=== PATIENT | male | born 1980 | race Caucasian/White ===

== ENCOUNTER 2020-03-31 12:35 | Outpatient (CLI) | payer OTHER | END 2020-03-31 20:27 | disposition home or self-care (01) | LOC: SRD 12:35 | PROVIDERS: ATTEND Urology | DX: N43.3 Hydrocele, unspecified (principal); N50.811 Right testicular pain | CPT/HCPCS: 76870-TC ==

== ENCOUNTER 2020-06-30 09:39 | Outpatient (CLI) | payer OTHER | END 2020-06-30 20:24 | disposition home or self-care (01) | LOC: SMI 09:39 | PROVIDERS: ATTEND Internal Medicine | DX: M48.061 Spinal stenosis, lumbar region without neurogenic claudication (principal); S83.207A Unspecified tear of unspecified meniscus, current injury, left knee, initial encounter; M25.462 Effusion, left knee; M54.30 Sciatica, unspecified side; X58.XXXA Exposure to other specified factors, initial encounter; Y93.89 Activity, other specified; Y92.89 Other specified places as the place of occurrence of the external cause; Y99.8 Other external cause status | CPT/HCPCS: 72148; 73721 ==

== ENCOUNTER 2020-07-06 15:41 | Outpatient (CLI) | payer OTHER | END 2020-07-06 20:38 | disposition home or self-care (01) | LOC: SRD 15:41 | PROVIDERS: ATTEND Internal Medicine | DX: M16.0 Bilateral primary osteoarthritis of hip (principal); R60.9 Edema, unspecified | CPT/HCPCS: 73502; 73564 ==

== ENCOUNTER → 2020-09-30 | Outpatient (CLI) | payer OTHER ==
[2020-09-30 09:30] LABS: BASOPHILS # (AUTO) 0.1 K/uL (0.0-0.2); BASOPHILS % (AUTO) 0.7 % (0.0-2.0); EOSINOPHILS # (AUTO) 0.5 K/uL (0.0-0.4); HEMATOCRIT 43.9 % (36-54); HEMOGLOBIN 14.5 g/dL (14.0-18.0); LYMPHOCYTES # (AUTO) 2.4 K/uL (1.0-5.5); LYMPHOCYTES % (AUTO) 33.1 % (20.5-51.5); MEAN CORPUSCULAR HEMOGLOBIN 31 pg (27-31); MEAN CORPUSCULAR HGB CONC 33 % (32-36); MEAN CORPUSCULAR VOLUME 94 fL (79.0-98.0); MONOCYTES # (AUTO) 0.4 K/uL (0.0-1.0); MONOCYTES % (AUTO) 6.1 % (1.7-9.3); NEUTROPHILS # (AUTO) 3.9 K/uL (1.8-7.7); NEUTROPHILS % (AUTO) 53.1 % (40.0-70.0); PLATELET COUNT (AUTO) 231 K/uL (130-430); RED BLOOD CELL COUNT(AUTO) 4.64 MIL/uL (4.2-6.2); RED CELL DISTRIBUTION WIDTH 13.2 % (9.0-15.0); WHITE BLOOD COUNT (AUTO) 7.4 K/uL (4.8-10.8)
[2020-09-30 10:57] LABS: POTASSIUM 3.8 mmol/L (3.5-5.1)
[2020-09-30 10:58] LABS: ALBUMIN 3.8 g/dL (3.4-4.8); CALCIUM 8.6 mg/dL (8.4-11.0); CREATININE 1.35 mg/dL (0.55-1.30); TOTAL BILIRUBIN 0.6 mg/dL (0.0-1.0); URIC ACID 4.8 mg/dL (2.4-7.0)
[2020-09-30 12:20] LABS: THYROID STIMULATING HORMONE 1.53 uIu/mL (0.34-4.82)
[2020-10-01 06:06] LABS: PROSTATE SPECIFIC AG 0.4 ng/mL (0.0-4.0)
== END | disposition home or self-care (01) ==
LOC: SCT 08:36
PROVIDERS: ATTEND Internal Medicine
DX: Z00.01 Encounter for general adult medical examination with abnormal findings (principal)
CPT/HCPCS: 36415; 80053; 80061; 82306; 82607; 83001; 83002; 83036; 84153; 84443; 84550; 85025

== ENCOUNTER 2020-10-16 08:39 | Outpatient (CLI) | payer OTHER | END 2020-10-16 16:00 | disposition home or self-care (01) | LOC: SCT 08:39 | PROVIDERS: ATTEND Internal Medicine | DX: K80.20 Calculus of gallbladder without cholecystitis without obstruction (principal); D49.7 Neoplasm of unspecified behavior of endocrine glands and other parts of nervous system; R91.1 Solitary pulmonary nodule | CPT/HCPCS: 70551; 71250-TC; 76376 ==

== ENCOUNTER 2021-01-18 09:14 | Outpatient (CLI) | payer OTHER ==
[2021-01-18 10:41] LABS: CALCIUM 9.2 mg/dL (8.4-11.0); CREATININE 1.08 mg/dL (0.55-1.30); POTASSIUM 4.2 mmol/L (3.5-5.1)
== END 2021-01-18 19:15 | disposition home or self-care (01) ==
LOC: SLB 09:14
PROVIDERS: ATTEND Internal Medicine
DX: N17.9 Acute kidney failure, unspecified (principal)
CPT/HCPCS: 36415; 80048; 84550

== ENCOUNTER 2021-01-22 08:33 | Outpatient (CLI) | payer OTHER | END 2021-01-22 19:37 | disposition home or self-care (01) | LOC: SUS 08:33 | PROVIDERS: ATTEND Internal Medicine | DX: K80.20 Calculus of gallbladder without cholecystitis without obstruction (principal); N20.0 Calculus of kidney; N28.1 Cyst of kidney, acquired; R22.0 Localized swelling, mass and lump, head | CPT/HCPCS: 70540; 76700-TC ==

== ENCOUNTER 2021-04-01 10:27 | Outpatient (CLI) | payer OTHER | END 2021-04-01 20:15 | disposition home or self-care (01) | LOC: SMI 10:27 | PROVIDERS: ATTEND Orthopaedic Surgery | DX: M89.311 Hypertrophy of bone, right shoulder (principal); M25.511 Pain in right shoulder | CPT/HCPCS: 73221 ==

== ENCOUNTER 2021-05-10 10:41 | Outpatient (CLI) | payer OTHER | END 2021-05-10 20:27 | disposition home or self-care (01) | LOC: SMI 10:41 | PROVIDERS: ATTEND Orthopaedic Surgery | DX: S81.012A Laceration without foreign body, left knee, initial encounter (principal); M25.462 Effusion, left knee; M87.88 Other osteonecrosis, other site; M25.862 Other specified joint disorders, left knee; X58.XXXA Exposure to other specified factors, initial encounter; Y93.89 Activity, other specified; Y92.89 Other specified places as the place of occurrence of the external cause; Y99.8 Other external cause status | CPT/HCPCS: 73721 ==

== ENCOUNTER 2021-06-11 15:24 | Outpatient (CLI) | payer OTHER | END 2021-06-11 20:43 | disposition home or self-care (01) | LOC: SRD 15:24 | PROVIDERS: ATTEND Internal Medicine | DX: R05.9 Cough, unspecified (principal) | CPT/HCPCS: 71046-TC ==

== ENCOUNTER 2021-12-21 09:06 | Outpatient (CLI) | payer OTHER ==
[2021-12-21 09:38] LABS: EOSINOPHILS # (AUTO) 0.4 K/uL (0.0-0.4); HEMATOCRIT 39.8 % (36-54); HEMOGLOBIN 13.5 g/dL (14.0-18.0); LYMPHOCYTES # (AUTO) 2.1 K/uL (1.0-5.5); LYMPHOCYTES % (AUTO) 34.8 % (20.5-51.5); MEAN CORPUSCULAR HEMOGLOBIN 31 pg (27-31); MEAN CORPUSCULAR HGB CONC 34 % (32-36); MEAN CORPUSCULAR VOLUME 92 fL (79.0-98.0); MONOCYTES # (AUTO) 0.6 K/uL (0.0-1.0); MONOCYTES % (AUTO) 10.3 % (1.7-9.3); PLATELET COUNT (AUTO) 227 K/uL (130-430); RED BLOOD CELL COUNT(AUTO) 4.34 MIL/uL (4.2-6.2); RED CELL DISTRIBUTION WIDTH 13.1 % (9.0-15.0); WHITE BLOOD COUNT (AUTO) 6.1 K/uL (4.8-10.8)
[2021-12-21 09:40] LABS: BASOPHILS % (AUTO) 0.2 % (0.0-2.0); NEUTROPHILS % (AUTO) 48.7 % (40.0-70.0)
[2021-12-21 10:06] LABS: ALBUMIN 3.5 g/dL (3.4-4.8); CALCIUM 9.2 mg/dL (8.4-11.0); CREATININE 1.23 mg/dL (0.55-1.30); POTASSIUM 4.2 mmol/L (3.5-5.1); THYROID STIMULATING HORMONE 1.91 uIu/mL (0.36-3.74); TOTAL BILIRUBIN 0.9 mg/dL (0.0-1.0)
[2021-12-21 10:35] LABS: BILIRUBIN,URINE NEGATIVE (NEGATIVE); BLOOD, URINE NEGATIVE (NEGATIVE); CLARITY/URINE CLEAR (CLEAR); COLOR,URINE YELLOW (YELLOW); GLUCOSE,URINE NEGATIVE (NEGATIVE); KETONES,URINE NEGATIVE (NEGATIVE); LEUKOCYTE ESTERASE ,URINE NEGATIVE (NEGATIVE); NITRITE, URINE NEGATIVE (NEGATIVE); PROTEIN URINE TRACE (NEGATIVE); UROBILINOGEN,URINE 0.2 (0.2-1.0)
[2021-12-22 07:06] LABS: FOLLICLE STIMULATION HORMONE 15.9 mIU/mL (1.5-12.4); LUETENIZING HORMONE 9.9 mIU/mL (1.7-8.6)
[2021-12-27 11:59] LABS: HEMOGLOBIN A1C 4.2 % (4.8-5.6)
== END 2021-12-21 19:54 | disposition home or self-care (01) ==
LOC: SLB 09:06
PROVIDERS: ATTEND Internal Medicine
DX: Z00.01 Encounter for general adult medical examination with abnormal findings (principal); E78.5 Hyperlipidemia, unspecified; E55.9 Vitamin D deficiency, unspecified; E56.9 Vitamin deficiency, unspecified; R32 Unspecified urinary incontinence
CPT/HCPCS: 36415; 80053; 80061; 81003; 82306; 82607; 83001; 83002; 83036; 84403; 84443; 85025